=== PATIENT | female | born 2000 | race Two or more races ===

== ENCOUNTER 2021-05-16 10:17 | Emergency (ER) | payer OTHER ==
[~2021-05-16] VITALS: Ht 160 cm; Wt 61.4 kg
[2021-05-16 11:45] VITALS: BP 124/81
== END 2021-05-16 12:12 ==
LOC: EMS 10:20
DX: O26.891 Other specified pregnancy related conditions, first trimester (principal); Z13.83 Encounter for screening for respiratory disorder NEC; Z3A.01 Less than 8 weeks gestation of pregnancy
CPT/HCPCS: 71045; 99283